=== PATIENT | male | born 1985 | race Caucasian/White ===

== ENCOUNTER 2019-01-11 06:11 | Emergency (ER) | payer OTHER ==
--- NOTE | 2019-01-11 06:25 | ED ---
Back Pain - HPI Summary HPI Summary: Pt. is a 33 y.o male who presents to the ER for left low back pain that started through the night. Pt. denies any injuries or falls. Pain radiates into left leg with occasional tingling. Denies fever, abd. pain, V/D, urinary sxs, bowel or bladder incontinence or retention. Past hx of anxiety/depression. Pt. notes he has had issues with sciatica in the past. Movement makes sxs worse. Nothing makes sxs better. Pt. took excedrin [employer]. Pt. noted to walk without difficulty to exam room from waiting rom. - History of Current Complaint Chief Complaint: EDBackInjuryPain Stated Complaint: "BACK/L LEG PAIN" PER PT Time Seen by Provider: 01/11/19 06:24 Hx Obtained From: Patient Pain Intensity: 8 - Allergies/Home Medications Allergies/Adverse Reactions: Allergies Allergy/AdvReac Type Severity Reaction Status Date / Time No Known Allergies Allergy Verified 01/11/19 06:20 Home Medications: Home Medications Citalopram TAB* [CeleXA TAB*] 30 mg PO DAILY 01/11/19 [History Confirmed ] Lisdexamfetamine Dimesylate [Vyvanse] 30 mg PO DAILY 01/11/19 [History Confirmed 01/11/19] PMH/Surg Hx/FS Hx/Imm Hx Previously Healthy: Yes Infectious Disease History: No Infectious Disease History: Denies: Traveled Outside the [place] in Last 30 Days - Family History Known Family History: Positive: Non-Contributory - Social History Occupation: Employed Full-time Lives: Alone Review of Systems Constitutional: Negative Negative: Fever, Chills Cardiovascular: Negative Negative: Chest Pain Respiratory: Negative Negative: Shortness Of Breath Gastrointestinal: Negative Negative: Abdominal Pain, Vomiting, Diarrhea Genitourinary: Negative Negative: dysuria, discharge, frequency, flank pain, hematuria, incontinence, urgency Positive: Other - Left sided back pain that radiates into left leg Skin: Negative Positive: Paresthesia - left leg intermittently All Other Systems Reviewed And Are Negative: Yes Physical Exam Triage Information Reviewed: Yes Vital Signs On Initial Exam: Initial Vitals Temp Pulse Resp BP Pulse Ox 98.5 F 123 20 143/100 97 01/11/19 06:20 01/11/19 06:20 01/11/19 06:20 01/11/19 06:20 01/11/19 06:20 Vital Signs Reviewed: Yes Appearance: Positive: Well-Appearing - Pt. lying in bed in NAD. Skin: Positive: Warm, Dry Head/Face: Positive: Normal Head/Face Inspection Eyes: Positive: Normal, EOMI, CHRISTINE Neck: Positive: Supple Respiratory/Lung Sounds: Positive: Clear to Auscultation, Breath Sounds Present Cardiovascular: Positive: Normal, RRR Abdomen Description: Negative: CVA Tenderness (R), CVA Tenderness (L) Musculoskeletal: Positive: Other - 5/5 strength in bilateral LEs. Positive straight leg on the left. No midline lumbar tenderness. Mild pain to left sciatic notch and SI joint. Neurological: Positive: Normal, Alert, Oriented to Person Place, Time, CN Intact II-III Psychiatric: Positive: Affect/Mood Appropriate Diagnostics - Vital Signs Vital Signs Temp Pulse Resp BP Pulse Ox 01/11/19 06:20 98.5 F 123 20 143/100 97 - Laboratory Lab Statement: Any lab studies that have been ordered have been reviewed, and results considered in the medical decision making process. Back Pain Course/Dx - Course Course Of Treatment: Pt.'s examin consistant with sciatica. He is afebrile HR and BP initially elevated. Pt. has no neurodeficits of evidence of cauda equina syndrome. Pt. treated with toradol and flexeril. Advised warm compresses, gentle massage and stretching. To f.u with [facility] if sxs persist. Given return precautions. Pt. understands and agrees with plan. - Diagnoses Differential Diagnosis/HQI/PQRI: Positive: Arthritis, Cauda Equina Syndrome, Compressive Cord Syndrome, Epidural Abscess, Fracture, Herniated Disc, Renal Colic, Septic Arthritis, Strain, Sprain Provider Diagnoses: Sciatica, Lumbar strain Discharge - Sign-Out/Discharge Documenting (check all that apply): Patient Departure Patient Received Moderate/Deep Sedation with Procedure: No - Discharge Plan Condition: Good Disposition: HOME Prescriptions: Cyclobenzaprine TAB* [Flexeril 10 MG TAB*] 10 mg PO TID PRN #12 tab PRN Reason: Pain Naproxen [Naproxen 500 mg tab] 500 mg PO BID #20 tablet Patient Education Materials: Sciatica (ED), Lumbar Radiculopathy (ED), Lower Back Exercises (ED) Referrals: [facility] [Outside] Additional Instructions: Follow up with [facility] Medications as directed Apply warm compresses Gentle stretching and massage Return to ER if symptoms change or worsen - Billing Disposition and Condition Condition: GOOD Disposition: Home
[2019-01-11] MEDS ORDERED: Ketorolac INJ* 60 MG/2 ML VIAL IM ONE (06:41)
[2019-01-11] MEDS ORDERED: Cyclobenzaprine TAB* 10 MG PO ONE (06:49)
[2019-01-11 07:09] VITALS: BP 142/72
== END 2019-01-11 07:05 | disposition home or self-care (01) ==
LOC: ED 06:11
DX: M54.32 Sciatica, left side (principal); S39.012A Strain of muscle, fascia and tendon of lower back, initial encounter; F32.9 Major depressive disorder, single episode, unspecified; F41.9 Anxiety disorder, unspecified; X58.XXXA Exposure to other specified factors, initial encounter; Y92.9 Unspecified place or not applicable
CPT/HCPCS: 36415; 86703; 96372; 99282; A9270-GY; J1885

== ENCOUNTER → 2019-01-22 19:40 | Emergency (ER) | payer OTHER ==
[2019-01-23 00:01] VITALS: BP 0/0
== END | disposition left against medical advice (07) ==
LOC: ED 19:40
DX: Z02.83 Encounter for blood-alcohol and blood-drug test (principal); Z53.21 Procedure and treatment not carried out due to patient leaving prior to being seen by health care provider